=== PATIENT | female | born 1990 | race Caucasian/White ===

== ENCOUNTER 2022-09-18 16:26 | Outpatient (CLI) | payer BC ==
[~2022-09-18] VITALS: Ht 165.1 cm; Wt 103.2 kg
[2022-09-18] VITALS (7 sets, daily range): BP systolic 116–140; BP diastolic 63–82; PULSE 75–84
[2022-09-18] MEDS ORDERED: PRENATAL TABLET PO (16:52)
[2022-09-18] MEDS ORDERED: TYLENOL 500MG500 MG PO (16:53)
[2022-09-18] MEDS ORDERED: EPA FISH OIL1 SGL PO (16:53)
--- NOTE | 2022-09-18 17:00 | NUR ---
1635- Pt arrives ambulatory with complaints of a QUINONES since 1200 today and elevated BP at home. Pt into bed, EFM and TOCO on and tracing well. O2 sat monitor on and tracing maternal HR. Assessments completed. Pt denies visual disturbances, abdominal pain, swelling, UCs, LOF, VB. +FM per Pt and heard on monitor.
[2022-09-18 18:12] LABS: BASO % 0.3 % (0.0-2.0); EOS % 0.2 % (0.0-4.0); GRAN % 74.9 % (42.2-75.2); HEMATOCRIT 33.7 % (37.0-47.0); HEMOGLOBIN 11.2 g/dl (12.5-16.0); LYMPH % 18.3 % (20.0-51.0); MEAN CELL VOLUME 80 fl (80.0-100.0); MEAN CORPUSCULAR HEMOGLOBIN 27 pg (27-31); MEAN CORPUSCULAR HGB CONC 33 g/dl (33.0-37.0); MEAN PLATELET VOLUME 12.4 fl (7.4-10.4); MONO # 0.6 K/mm3 (0.1-0.6); MONO % 5.7 % (1.7-9.3); PLATELET COUNT 226 K/mm3 (130-400); RED BLOOD COUNT 4.23 M/mm3 (4.10-5.30); REDCELL DISTRIBUTION WIDTH-CV 14.6 % (11.5-14.5)
--- NOTE | 2022-09-18 18:20 | NUR ---
This nurse received report from Nohemy Powers RN. Pt is stable, on external monitors x2, and waiting on lab results. When results are received, notify Dr. Horvath of results for POC. Care assumed by this nurse.
[2022-09-18 18:22] LABS: ALBUMIN 2.7 gm/dL (3.5-5.0); BILIRUBIN,TOTAL 0.2 mg/dL (0.2-1.2); CALCIUM 8.7 mg/dL (8.4-10.2); CREATININE, serum 0.65 mg/dL (0.57-1.11); POTASSIUM 3.5 mmol/L (3.5-4.5); TOTAL PROTEIN 6.3 gm/dL (6.2-8.1)
[2022-09-18 18:27] LABS: URINE APPEARANCE Clear (CLEAR/HAZY); URINE COLOR Yellow (YELLOW)
[2022-09-18 18:29] LABS: URINE BLOOD Negative (NEGATIVE); URINE GLUCOSE Negative (NEGATIVE); URINE KETONE 4+ (NEGATIVE); URINE NITRATE Negative (NEGATIVE); URINE PROTEIN(semi-quant) 1+ (NEGATIVE); URINE UROBILINOGEN 0.2 E.U/dL (0.2-1.0)
--- NOTE | 2022-09-18 18:35 | NUR ---
[id number]: This nurse at pt bedside for introductions and discussion of POC. FHR tracing intermittently due to pt position. This nurse at pt bedside palpating pt abdomen, with consent and explanation, attempting to readjust FHR monitor. POC discussed with pt. Lab results are pending and will be shared with the provider and pt as soon as they are resulted. Questions, concerns, needs encouraged. Pt verbalized understanding and agreement of POC with "no" questions, concerns, or needs. 1833: This nurse received a call from the charge nurse Natalie Ennis RN. Dr. Horvath notified her of pt lab results and orders given to DC pt endorsed. 1834: This nurse at pt bedside discussing POC and lab results. Pt off external monitors x2 and informed of DC paperwork to discuss prior to pt DC. Questions, concerns, needs encouraged. Pt denies questions, concerns, needs.
[2022-09-18 18:47] LABS: COLLECTION METHOD CLEAN CATCH
[2022-09-18 18:52] LABS: MUCOUS Present (NOT PRESENT); SQUAMOUS EPITHELIAL 0-2 /hpf (0-10); URINE BACTERIA Rare /hpf (NONE SEEN); URINE RBC 0-2 /hpf (0-2)
--- NOTE | 2022-09-18 18:54 | NUR ---
Pt POC for DC discussed with pt and pt spouse. Pt given health summary discharge and education packet on Early Labor as well as Discomforts of . Pt educated on keeping all scheduled appointments as well as returning to unit if LOF, vaginal bleeding, and/or consistent and persistent ctx occur. Pt also educated on being adequately hydrated. Questions, concerns, and needs encouraged. Pt curious about "how should I be taking my BP then? At home I have the inflating cuff one." Pt educated on body position, legs not crossed, and being in a low/no stimulation environment for BP readings. Pt verbalized understanding and agreement of POC for DC with "no" additional questions, concerns, or needs. Pt ambulated off unit with belongings in tow, and DC paperwork as well as health summary in hand, accompanied by pt spouse at 1854.
== END 2022-09-18 18:54 | disposition home or self-care (01) ==
LOC: LDRO 16:26
PROVIDERS: Obstetrics & Gynecology
DX: O16.3 Unspecified maternal hypertension, third trimester (principal); Z3A.36 36 weeks gestation of pregnancy